=== PATIENT | female | born 2000 | race Two or more races ===

== ENCOUNTER 2020-11-09 09:20 | Emergency (ER) | payer OTHER ==
[2020-11-09 09:28] VITALS: BP 128/84; PULSE 86; TEMP 97.9; BMI 24.7
[2020-11-09] MEDS ORDERED: ACETAMINOPHEN 500 MG TABLET (FP) PO ONE (10:15)
[2020-11-09] MEDS ORDERED: ACETAMINOPHEN 500 MG TABLET (FP) ONE (10:34)
[2020-11-09 11:15] LABS: BASO % 0.5 % (0-2.0); EOS % 0.2 % (0-4.5); HEMATOCRIT 42.6 % (32.4-45.2); HEMOGLOBIN 14.8 GM/dL (10.7-15.3); LYMPH % 13.6 % (8-40); MCH 33.6 pg (25.7-33.7); MCHC 34.7 g/dl (32.0-36.0); MEAN CELL VOLUME 96.7 fl (80-96); MEAN PLT VOLUME 8.3 fl (7.5-11.1); MONO % 4.8 % (3.8-10.2); NEUT % 80.9 % (42.8-82.8); PLATELET COUNT 250 10^3/uL (134-434); RDW 12.7 % (11.6-15.6)
[2020-11-09 11:32] LABS: HCG,QUALITATIVE URINE Positive
[2020-11-09 11:38] LABS: CALCIUM 9.1 mg/dL (8.5-10.1)
[2020-11-09 11:39] LABS: ALBUMIN 4.1 g/dl (3.4-5.0); BLOOD UREA NITROGEN 7.4 mg/dL (7-18)
[2020-11-09 11:42] LABS: CREATININE 0.6 mg/dL (0.55-1.3)
[2020-11-09 11:43] LABS: BILIRUBIN,TOTAL 0.4 mg/dL (0.2-1); TOT PROT 8.2 g/dl (6.4-8.2)
[2020-11-09 11:54] LABS: PH,URINE 5.5 (5.0-8.0); URINE APPEARANCE Clear; URINE BILIRUBIN Negative (NEGATIVE); URINE COLOR Yellow; URINE GLUCOSE (UA) Negative (NEGATIVE); URINE KETONE Negative (NEGATIVE); URINE LEUK ESTERASE Negative (NEGATIVE); URINE NITRITE Negative (NEGATIVE); URINE PROTEIN Negative (NEGATIVE); URINE UROBILINOGEN 0.2 mg/dL (0.2-1.0)
== END 2020-11-09 14:45 | disposition home or self-care (01) ==
LOC: JER 09:20
DX: R10.10 Upper abdominal pain, unspecified (principal); Z3A.01 Less than 8 weeks gestation of pregnancy
CPT/HCPCS: 36415; 76817-TC; 80053; 81003; 84703; 85025; 87086; 99284-25